=== PATIENT | female | born 1980 | race Caucasian/White ===

== ENCOUNTER 2022-02-27 18:20 | Emergency (ER) | payer OTHER, SELFPAY ==
[2022-02-27] VITALS (12 sets, daily range): BP systolic 112–129; BP diastolic 77–101; PULSE 88–220; RESP 14–24; TEMP 36.4; O2SAT 97–100
--- NOTE | ~2022-02-27 | XR_ITS ---
EXAMINATION: XR chest 1V portable DATE: 02/27/2022 19:06 INDICATION: Supraventricular tachycardia TECHNIQUE: frontal view of the chest was obtained. COMPARISON: Chest radiograph dated 11/04/2005 FINDINGS: The lungs remain clear with no focal airspace opacities, pulmonary edema, pleural effusion or pneumot horax. The cardiomediastinal silhouette is normal. Visualized bones and soft tissues are unremarkable . IMPRESSION: 1. No acute cardiopulmonary disease. Reviewed, dictated and finalized at location A.
--- NOTE | 2022-02-27 18:38 | ECG_ITS ---
Measurements Intervals [place] Rate: 0 P: MO: 0 QRS: QRSD: 0 T: QT: 0 QTc: 0 Interpretive Statements SUPRAVENTRICULAR TACHYCARDIA ST-T WAVE ABNORMALITY IN DIFFUSE LEADS- CONSIDER ISCHEMIA OR RATE RELATED BASELINE ARTIFACT- I, II, III, AVR, AVL, AVF, V1-V6 ABNORMAL ECG NO PREVIOUS ECG AVAILABLE FOR COMPARISON Electronically Signed On 02-27-2022 19:37:17 CDT by Jayme Villavicencio D.O.
--- NOTE | 2022-02-27 18:39 | ED.ARRPALP ---
HPI - Arrhythmia/Palpitations General Chief Complaint: Arrhythmia/Palpitations <Nandini Anguiano PA-C - Last Filed: 02/27/22 21:13> Stated Complaint: Racing heart/Shortness of Breath <ELANA Watt Last Filed: 02/27/22 21:13> Time Seen by Provider: 02/27/22 18:29 <ELANA Watt Last Filed: 02/27/22 21:13> Source: patient <ELANA Watt Last Filed: 02/27/22 21:13> Mode of arrival: ambulatory <ELANA Watt Last Filed: 02/27/22 21:13> Limitations: no limitations <ELANA Watt Last Filed: 02/27/22 21:13> History of Present Illness HPI narrative: This is a 41 year old female that presents to the ER for anxiety. Reports feelings of her heart racing and nausea. Reports mild chest discomfort and shortness of breath. Reports history of anxiety and she thought she was maybe having an anxiety attack. She has had 2 previous episodes in the past, was seen in the ER and diagnosed with anxiety. Denies lower extremity edema. <ELANA Watt Last Filed: 02/27/22 21:13> Related Data Home Medications: Home Medications Medication Instructions Recorded Confirmed No Home Medications 02/27/22 02/27/22 <ELANA Watt Last Filed: 02/27/22 21:13> Allergies/Adverse Reactions: Allergies Allergy/AdvReac Type Severity Reaction Status Date / Time iohexol Allergy Anaphylaxis Verified 02/27/22 18:22 [From contrast - CT, X-RAY] Penicillins Allergy Rash Verified 02/27/22 18:22 <ELANA Watt Last Filed: 02/27/22 21:13> Review of Systems Review of Systems: CONSTITUTIONAL: Denies fever CARDIOVASCULAR: Reports chest pain, palpitations RESPIRATORY: Reports dyspnea. <ELANA Watt Last Filed: 02/27/22 21:13> All systems reviewed & are unremarkable except as noted in HPI and below <Nandini Anguiano PA-C - Last Filed: 02/27/22 21:13> [facility] Past Medical History Medical History: Medical History (Updated 02/28/22 @ 00:00 by Jacob Rincon) No active medical problems <Nandini Anguiano PA-C - Last Filed: 02/27/22 21:13> Social History Social History: Social History (Updated 02/27/22 @ 21:06 by Nandini Anguiano PA-C) Smoking status: Never smoker <Nandini Anguiano PA-C - Last Filed: 02/27/22 21:13> Exam Narrative: GENERAL: Well-appearing, well-nourished, and in no acute distress. HEAD: Normocephalic, atraumatic. EYES: EOMI. CHEST: Clear to auscultation. No respiratory distress. No wheezes rales or rhonchi HEART: Tachycardic. No murmur heard. Normal peripheral pulses. EXTREMITIES: Normal range of motion. No edema. SKIN: Warm, dry, no rash. NEURO: No focal deficits. Alert and oriented x3. PSYCH: Normal mood and affect <Nandini Anguiano PA-C - Last Filed: 02/27/22 21:13> Course TILE PICKER/PA Physician Supervision For this patient encounter, I reviewed the TILE PICKER or PA documentation, treatment plan, and medical decision making <Chuck De León MD - Last Filed: 03/03/22 10:58> Consultations Consultation #1: Spoke with patient's primary about work-up to ensure close follow-up. <Nandini Anguiano PA-C - Last Filed: 02/27/22 21:13> Date: 02/27/22 <Nandini Anguiano PA-C - Last Filed: 02/27/22 21:13> Time: 21:09 <Nandini Anguiano PA-C - Last Filed: 02/27/22 21:13> Vital Signs Vital signs: Vital Signs Temperature 97.6 F 02/27/22 18:24 Pulse Rate 220 H 02/27/22 18:24 Respiratory Rate 20 02/27/22 18:24 Blood Pressure 129/101 H 02/27/22 18:24 Pulse Oximetry 100 02/27/22 18:24 Oxygen Delivery Room Air 02/27/22 18:24 Temperature 97.6 F 02/27/22 18:24 Pulse Rate 91 02/27/22 22:03 Respiratory Rate 18 02/27/22 22:03 Blood Pressure 123/94 H 02/27/22 22:03 Pulse Oximetry 98 02/27/22 22:03 Oxygen Delivery Room Air 02/27/22 18:24 <Nandini Anguiano PA-C - Last Filed: 02/27/22 21:13> Vital Signs Temperatur
--- NOTE | 2022-02-27 18:42 | ECG_ITS ---
Measurements Intervals [place] Rate: 86 P: 28 [place]: 151 QRS: 13 QRSD: 94 T: 5 QT: 340 QTc: 408 Interpretive Statements SINUS RHYTHM NORMAL ECG COMPARED TO ECG 02/27/2022 18:31:57 SINUS RHYTHM NOW PRESENT Electronically Signed On 02-27-2022 19:37:31 CDT by Jayme Villavicencio D.O.
[2022-02-27 19:14] LABS: Basophils Absolute Auto 0.1 K/mm3 (0.0-0.1); Basophils Percent Auto 0.9 % (0.2-1.2); Eosinophils Absolute Auto 0.1 K/mm3 (0-0.3); Hematocrit 43.6 % (37.0-47.0); Hemoglobin 14.9 g/dL (12.0-15.0); Immature Granulocyte Absolute 0.03 K/mm3 (0.00-0.031); Immature Granulocyte Percent A 0.2 % (0-0.5); Lymphocytes Absolute Auto 5.01 K/mm3 (0.9-3.2); Lymphocytes Percent Auto 39.2 % (18.3-44.2); Mean Corpuscular HGB Conc 34.2 g/dl (32-36); Mean Corpuscular Hemoglobin 28.9 pg (26-34); Mean Corpuscular Volume 84.7 fl (80-100); Mean Platelet Volume 10.6 fl (7.4-10.4); Monocytes Absolute Auto 0.9 K/mm3 (0.1-0.6); Monocytes Percent Auto 6.7 % (2.6-8.5); Neutrophils Absolute Auto 6.6 K/mm3 (1.3-6.7); Platelet Count Result 329 k/mm3 (150-375); Red Blood Count 5.15 M/mm3 (4.2-5.4); Red Cell Distribution Width 13.1 % (11.5-14.5); White Blood Count 12.8 K/mm3 (4.5-10.0)
[2022-02-27 19:23] LABS: Alanine Aminotransferase 93 U/L (6-35); Albumin Level 4.8 g/dL (3.5-5.1); Alkaline Phosphatase 45 U/L (38-126); Anion Gap 18 mmol/L (8-16); Aspartate Amino Transferase 83 U/L (14-36); Bilirubin,Total 0.4 mg/dL (0.2-1.3); Blood Urea Nitrogen 13 mg/dL (7-17); Calcium 9.7 mg/dL (8.4-10.2); Carbon Dioxide 20 mmol/L (22-30); Chloride 101 mmol/L (98-107); Estimated CRCL calculation 94 ml/min; Estimated Glomerular Filt Rate > 60; Glucose 163 mg/dL (65-110); Lipase 145 U/L (23-300); Magnesium 1.9 mg/dL (1.6-2.3); Sodium 139 mmol/L (137-145)
[2022-02-27 19:24] LABS: Prothrombin Time 12.6 Seconds (11.1-14.7)
[2022-02-27 19:25] LABS: Partial Thromboplastin Time 26.9 SECONDS (22.3-36.8)
--- NOTE | 2022-02-27 19:28 | PC.NURSE ---
Patient report given to ALIVIA Hughes. All questions answered and care of patient transferred.
[2022-02-27 19:35] LABS: Troponin I < 0.012 ng/mL (0.000-0.034)
== END 2022-02-27 22:04 | disposition home or self-care (01) ==
PROVIDERS: Physician Assistant; Emergency Provider Emergency Medicine; PCP Family Medicine
DX: I47.1 Supraventricular tachycardia (principal); R94.31 Abnormal electrocardiogram [ECG] [EKG]
CPT/HCPCS: 36415; 71045; 80053; 83690; 83735; 84484; 85025; 85610; 85730; 93005; 99284